=== PATIENT | male | born 1950 | race Caucasian/White ===

== ENCOUNTER 2022-11-08 12:03 | Emergency (ER) | payer MEDICARE, OTHER, SELFPAY ==
[2022-11-08] VITALS (13 sets, daily range): BP systolic 116–141; BP diastolic 69–74; PULSE 73–79; RESP 15–20; TEMP 36.3–37; O2SAT 94–100
--- NOTE | ~2022-11-08 | XR_ITS ---
Clinical Indication: Chest pain AP and lateral views of the chest: Comparison: None Findings: The lungs are clear, without evidence of focal consolidation or pleural effusion. Cardiome diastinal silhouette is unremarkable, status post CABG. Fracture of the posterolateral right fifth ri b present. Impression: Posterolateral right fifth rib fracture. Clear lungs. Status post CABG. Reviewed, dictated and finalized at [facility]. Impression: Posterolateral right fifth rib fracture. Clear lungs. Status post CABG.
--- NOTE | ~2022-11-08 | CT_ITS ---
EXAMINATION: CT brain wo con DATE: 11/08/2022 14:23 INDICATION: Loss of consciousness. Head injury. TECHNIQUE: Computed tomography (CT) of the head was performed without intravenous contrast. The mA wa s adjusted according to patient size. Iterative reconstruction technique was employed. The dose-lengt h product was 681.00 mGy-cm. COMPARISON: None FINDINGS: There is acute subarachnoid hemorrhage in sulci in left temporal lobe and posterior right f rontal lobe. There are scattered areas of low attenuation in the cerebral white matter, which is with in normal limits for the patient's age. There is no acute ischemic infarct or abnormal mass lesion. T he ventricles are normal in size. The orbits are normal. There is mucosal thickening in the paranasal sinuses. The mastoid air cells are normal. There is right frontal lateral scalp soft tissue swelling . IMPRESSION: 1. Acute subarachnoid hemorrhage in sulci in left temporal lobe and posterior right frontal lobe. I c alled this result to Dr. Shine. Reviewed, dictated and finalized at location [facility]. IMPRESSION: 1. Acute subarachnoid hemorrhage in sulci in left temporal lobe and posterior r ight frontal lobe. I called this result to Dr. Shine.
--- NOTE | ~2022-11-08 | CT_ITS ---
EXAMINATION: CT cervical spine wo con DATE: 11/08/2022 14:23 INDICATION: Head injury. TECHNIQUE: Computed tomography (CT) of the cervical spine was performed without intravenous contrast. Automated exposure control and iterative reconstruction technique were employed. The dose-length pro duct was 471.88 mGy-cm. COMPARISON: None FINDINGS: There is 2 mm anterolisthesis of C4 on C5. There is 3 degrees dextrocurvature of cervical s pine. C1 ring is ununited posteriorly, a normal variant. There is a compression fracture of T2 with 1 /5 loss of height. There is mildly decreased disc height at C2-C3 and C3-C4, severely decreased disc height at C6-C7, and mildly decreased disc height at C7-T1. The following disc levels are specificall y discussed: C2-C3: There is mild bilateral uncovertebral joint osteoarthritis. There is severe bilateral facet luis manuel int osteoarthritis. There is mild bilateral neural foraminal stenosis. There is no central canal sten osis. C3-C4: There is mild bilateral uncovertebral joint osteoarthritis. There is severe bilateral facet luis manuel int osteoarthritis. There is mild bilateral neural foraminal stenosis. There is no central canal sten osis. C4-C5: There is mild bilateral uncovertebral joint osteoarthritis. There is severe bilateral facet luis manuel int osteoarthritis. There is mild bilateral neural foraminal stenosis. There is no central canal sten osis. C5-C6: There is moderate bilateral uncovertebral joint osteoarthritis. There is severe bilateral face t joint osteoarthritis. There is mild bilateral neural foraminal stenosis. There is mild central travis l stenosis. C6-C7: There is severe bilateral uncovertebral joint osteoarthritis. There is mild bilateral facet luis manuel int osteoarthritis. There is moderate bilateral neural foraminal stenosis. There is mild central travis l stenosis. C7-T1: There is no uncovertebral joint osteoarthritis. There is moderate bilateral facet joint osteoa rthritis. There is mild bilateral neural foraminal stenosis. There is no central canal stenosis. IMPRESSION: 1. Age-indeterminate T2 compression fracture. 2. Severe cervical spondylosis. Reviewed, dictated and finalized at location [facility].
[2022-11-08 12:38] LABS: Glucose Point of Care 152 mg/dl (65-105)
--- NOTE | 2022-11-08 13:10 | ECG_ITS ---
Measurements Intervals [place] Rate: 73 P: 3 NM: 193 QRS: -29 QRSD: 100 T: 97 QT: 373 QTc: 412 Interpretive Statements SINUS RHYTHM BORDERLINE R WAVE PROGRESSION, ANTERIOR LEADS CONSIDER INFERIOR INFARCT, AGE INDETERMINATE ST-T WAVE ABNORMALITY IN HIGH LATERAL LEADS- CONSIDER ISCHEMIA BASELINE ARTIFACT- I, II, AVR, AVF, V1 ABNORMAL ECG NO PREVIOUS ECG AVAILABLE FOR COMPARISON Electronically Signed On 11-08-2022 13:11:46 CDT by Errol Solano D.O.
--- NOTE | 2022-11-08 13:10 | ED.FALL ---
HPI - Fall General Chief Complaint: Fall Stated Complaint: glf with lac Time Seen by Provider: 11/08/22 12:15 History of Present Illness HPI Narrative: Patient is a 72-year-old male with a history of cerebellar atrophy, neuropathy presenting after a fall. Patient's is at bedside and assists with the history. States that the patient unfortunately has frequent falls due to balance and sensory issues. He was [place] the movie theater today when he fell forward striking his head. There was positive loss of consciousness. Since that time, the patient has had poor memory of the events surrounding the fall. Denies headache, neck or back pain, abdominal pain. States that he has had a cough since last night and now he has some right-sided chest pain with cough. Denies any left-sided chest pain, lightheadedness, new numbness or weakness, vomiting, diarrhea. Related Data Allergies Allergy/AdvReac Type Severity Reaction Status Date / Time No Known Allergies Allergy Verified 11/08/22 12:19 Review of Systems Review of Systems: All systems reviewed & are unremarkable except as noted in HPI and below Exam Narrative: GENERAL: Well-appearing, well-nourished, and in no acute distress. Pleasant and cooperative HEAD: Normocephalic, very small laceration lateral to right eyebrow, approximately 2 to 3 mm EYES: PERRLA and EOMI. ENT: Nares clear, no rhinorrhea or epistaxis. Mucous membranes moist. NECK: Supple. CHEST: No respiratory distress. Mild tenderness with palpation right lower chest HEART: Regular rate and rhythm. Normal peripheral pulses. ABDOMEN: Soft, nontender, nondistended EXTREMITIES: Normal range of motion. No edema. SKIN: Warm, dry, no rash. NEURO: Moving all extremities spontaneously, no focal deficits, alert and oriented x3. PSYCH: Normal mood and affect. Course Vital Signs Vital signs: Vital Signs Temperature 97.3 F L 11/08/22 12:07 Pulse Rate 75 11/08/22 12:07 Respiratory Rate 20 11/08/22 12:07 Blood Pressure 141/74 H 11/08/22 12:07 Pulse Oximetry 96 11/08/22 12:07 Oxygen Delivery Room Air 11/08/22 12:07 Temperature 98.6 F 11/08/22 15:29 Pulse Rate 75 11/08/22 15:29 Respiratory Rate 15 11/08/22 15:29 Blood Pressure 140/70 11/08/22 15:29 Pulse Oximetry 99 11/08/22 15:29 Oxygen Delivery Room Air 11/08/22 12:07 MDM - Fall MDM Narrative Medical decision making narrative: Patient is a 72-year-old male presenting after a fall. Vitals are stable. Exam remarkable for the above. Plan for CT brain, C-spine, basic labs, fluids. EKG per my interpretation shows normal sinus rhythm, left axis deviation, nonspecific T wave changes, no ST elevations or depressions. CT brain is concerning for subarachnoid hemorrhage involving the left temporal lobe as well as the right frontal lobe. Chest x-ray also with right-sided fifth rib fracture, no associated pneumothorax. Respiratory status remains stable. Spoke with the ER at [facility] who has accepted the patient as a level [address] Ayala is the accepting physician. Patient transferred in hemodynamically stable condition. Lab Data 11/08/22 14:08 11/08/22 14:07 Labs: Lab Results 11/08/22 11/08/22 11/08/22 Range/Units 12:34 14:07 14:08 WBC 8.5 (4.5-10.0) K/mm3 RBC 4.55 L (4.6-6.20) M/mm3 Hgb 13.7 L (14.0-18.0) g/dL Hct 42.5 (42.0-52.0) % MCV 93.4 (80-100) fl MCH 30.1 (26-34) pg MCHC 32.2 (32-36) g/dl RDW 16.1 H (11.5-14.5) % Plt Count 175 (150-375) k/mm3 MPV 9.0 (7.4-10.4) fl Immature Gran % (Auto) 0.5 (0-0.5) % Neut % (Auto) 80.2 H (45.5-73.1) % Lymph % (Auto) 5.9 L (18.3-44.2) % Rogers % (Auto) 13.0 H (2.6-8.5) % Eos % (Auto) 0.0 (0-4.4) % Baso % (Auto) 0.4 (0.2-1.2) % Lymph # (Auto) 0.50 L (0.9-3.2) K/mm3 Rogers # (Auto) 1.1 H (0.1-0.6) K/mm3 Eos # (Auto) 0.0 (0-0.3) K/mm3 Baso # (Auto) 0.
[2022-11-08] MEDS: SODIUM CHLORIDE 0.9% IV 1,000 ML 999 ML IV CONT (14:11)
[2022-11-08 14:13] LABS: Basophils Percent Auto 0.4 % (0.2-1.2); Hematocrit 42.5 % (42.0-52.0); Hemoglobin 13.7 g/dL (14.0-18.0); Immature Granulocyte Absolute 0.04 K/mm3 (0.00-0.031); Immature Granulocyte Percent A 0.5 % (0-0.5); Lymphocytes Percent Auto 5.9 % (18.3-44.2); Mean Corpuscular HGB Conc 32.2 g/dl (32-36); Mean Corpuscular Hemoglobin 30.1 pg (26-34); Mean Corpuscular Volume 93.4 fl (80-100); Monocytes Absolute Auto 1.1 K/mm3 (0.1-0.6); Neutrophils Absolute Auto 6.8 K/mm3 (1.3-6.7); Neutrophils Percent Auto 80.2 % (45.5-73.1); Platelet Count Result 175 k/mm3 (150-375); Red Blood Count 4.55 M/mm3 (4.6-6.20); Red Cell Distribution Width 16.1 % (11.5-14.5); White Blood Count 8.5 K/mm3 (4.5-10.0)
[2022-11-08 14:26] LABS: Alanine Aminotransferase 34 U/L (6-50); Albumin Level 4.2 g/dL (3.5-5.1); Alkaline Phosphatase 49 U/L (38-126); Anion Gap 11 mmol/L (8-16); Aspartate Amino Transferase 56 U/L (17-59); Bilirubin,Total 0.5 mg/dL (0.2-1.3); Blood Urea Nitrogen 14 mg/dL (9-20); Calcium 9.5 mg/dL (8.4-10.2); Carbon Dioxide 28 mmol/L (22-30); Chloride 100 mmol/L (98-107); Estimated CRCL calculation 90 ml/min; Estimated Glomerular Filt Rate > 60; Glucose 117 mg/dL (65-110); Magnesium 1.8 mg/dL (1.6-2.3); Sodium 139 mmol/L (137-145)
[2022-11-08 14:34] LABS: Troponin I < 0.012 ng/mL (0.000-0.034)
[2022-11-08 14:50] LABS: Influenza A QL RT-PCR Negative (Negative); Influenza B QL RT-PCR Negative (Negative); SARS-CoV-2 RNA PCR Positive (Negative)
[2022-11-08] MEDS: ACETAMINOPHEN 500 MG TABLET 1000 MG PO (15:34)
== END 2022-11-08 16:30 | disposition short-term general hospital (02) ==
PROVIDERS: Emergency Provider Emergency Medicine
DX: S06.6X9A Traumatic subarachnoid hemorrhage with loss of consciousness of unspecified duration, initial encounter (principal); S22.31XA Fracture of one rib, right side, initial encounter for closed fracture; S22.020A Wedge compression fracture of second thoracic vertebra, initial encounter for closed fracture; U07.1 COVID-19; G62.9 Polyneuropathy, unspecified; Z95.1 Presence of aortocoronary bypass graft; R29.6 Repeated falls; Z91.81 History of falling; M47.812 Spondylosis without myelopathy or radiculopathy, cervical region; R94.31 Abnormal electrocardiogram [ECG] [EKG]; W18.30XA Fall on same level, unspecified, initial encounter
CPT/HCPCS: 36415; 70450; 71046; 72125; 80053; 82948; 83735; 84484; 85025; 87636; 93005; 96360; 99284; 99285; A9270; J7030